=== PATIENT | female | born 1965 | race Caucasian/White ===

== ENCOUNTER 2019-05-21 10:07 | Emergency (ER) | payer OTHER, SELFPAY ==
--- NOTE | ~2019-05-21 | XR_ITS ---
EXAMINATION: XR abdomen/kub 1V DATE: 05/21/2019 10:43 INDICATION: Left flank pain. TECHNIQUE: A supine view of the abdomen was obtained. COMPARISON: None. FINDINGS: There are no dilated loops of bowel. Calcifications in the pelvis are likely phleboliths. S mall distal ureteral stone cannot be excluded. IMPRESSION: 1. Calcifications in the pelvis, which are likely phleboliths. Small distal ureteral stone cannot be excluded. Reviewed, dictated and finalized at location A. PRODUCTION GENERAL MANAGER IMPRESSION: 1. Calcifications in the pelvis, which are likely phleboliths. Small distal ure teral stone cannot be excluded.
--- NOTE | 2019-05-21 10:17 | ED.GENADULT ---
HPI - General Adult General Chief complaint: Back Pain/Injury Stated complaint: lower back pain Time Seen by Provider: 05/21/19 10:29 Source: patient Mode of arrival: ambulatory Limitations: no limitations History of Present Illness HPI narrative: 54-year-old female patient presents to the [facility] with complaints of left flank pain that started abruptly at 1 AM yesterday morning. Patient states she has had some urgency and frequency but states that she does have that at times. Patient denies any pain with urination. Patient denies any fevers, or vomiting. Patient states she has had some nausea and diarrhea though. Patient denies any injury to the back that she is aware of. Patient denies any radiation of pain that wraps around the belly and denies any radiation pain down the leg. Patient states she has been taking Tylenol ibuprofen and a heating pad to help with the pain. Related Data Allergies Allergy/AdvReac Type Severity Reaction Status Date / Time No Known Allergies Allergy Unverified 06/03/17 17:18 Review of Systems Review of Systems: Narrative: CONSTITUTIONAL: Denies fever, chills, or sweats. EYES: Denies visual changes, redness, or discharge. ENT: Denies rhinorrhea, congestion, sore throat, or otalgia. CARDIOVASCULAR: Denies chest pain, palpitations, or edema. RESPIRATORY: Denies cough or dyspnea. GASTROINTESTINAL: Denies abdominal pain, nausea, vomiting, or diarrhea. GENITOURINARY: Denies dysuria or hematuria. Positive urgency and frequency. SKIN: Denies rash or itching. MUSCULOSKELETAL: Positive left flank/back pain, denies joint pain, or myalgia. NEUROLOGIC: Denies headache, numbness, or weakness. PSYCHIATRIC: Denies anxiety or depression. PMFSH Past Medical History Medical History (Updated 05/21/19 @ 11:28 by SARA Lara) Anxiety Bronchitis Pneumonia Psoriasis Surgical History Surgical History (Updated 05/21/19 @ 10:19 by SARA Lara) H/O tubal ligation Comments At the time of my signature I agree with nursing past medical history, surgical, social, and family history. There is no relevant family history pertinent to the presenting complaint. Exam Narrative: Exam Narrative: GENERAL: Well-appearing, well-nourished, and in no acute distress. HEAD: Normocephalic, atraumatic. EYES: PERRLA and EOMI. ENT: Nares clear, no rhinorrhea or epistaxis. Mucous membranes moist. NECK: Supple. No lymphadenopathy CHEST: Clear to auscultation. No respiratory distress. HEART: Regular rate and rhythm. No murmur heard. Normal peripheral pulses. ABDOMEN: Soft, flat, nondistended. No guarding, rebound tenderness, or rigid. No pulsatilla masses. Bowel sounds present in all four quadrants. No organomegaly. Negative Carson?s sign. No periumbicial tenderness. No Supra public tenderness or distension. Good femoral pulses bilaterally. No hernia noted. No scars or surface trauma. No CVA tenderness on percussion BACK: Patient is able to ambulated without assistance. Pt is seated/lying on the stretcher in no obvouis distress. No surface trauma noted. No muscle tenderness to Palpation. No spasm or mass. No step-offs or deformity noted to the cervical, thoracic or lumbar spine to firm Palpation at the midline. No CVA tenderness to percussion. No saddle anesthesia. ROM: able to stand erect. Normal flexion, extension, Lateral bending and rotation without limitation or complaint of pain. EXTREMITIES: Normal range of motion. No edema. SKIN: Warm, dry, no rash. NEURO: No focal deficits. Alert and oriented x3. Course Reevaluation(s) Reevaluation #1: Notify patient that her x-ray is suggestive of possibly a small kidney stone. Discussed with patient we are going to go ahead and treat her as a kidney stone today given her pain and her symptoms. Discussed with patient we will discharge her with home with some Flomax as well as some pain medication. Discussed with her she needs to increase her fluid. Discussed with patient
[2019-05-21 10:20] VITALS: BP 157/95; PULSE 76; RESP 18; TEMP 36.9; O2SAT 99
== END 2019-05-21 11:37 | disposition home or self-care (01) ==
PROVIDERS: Emergency Provider Nurse Practitioner Family
DX: N20.0 Calculus of kidney (principal)
CPT/HCPCS: 74018; 81003; 87086; 99213; G0463

== ENCOUNTER → 2019-05-25 14:18 | Outpatient (CLI) | payer OTHER, SELFPAY ==
--- NOTE | ~2019-05-25 | CT_ITS ---
EXAMINATION: CT abdomen pelvis wo con EXAM DATE: 05/25/2019 14:32 INDICATION: Left flank pain, nausea. TECHNIQUE: Spiral CT of the abdomen and pelvis was performed without contrast. Axial, coronal and sag ittal images were reviewed. The dose-length product (DLP) for this examination was 261.66 mGy-cm. T he exposure was tailored according to patient size (auto mA exposure control), and iterative reconstr uction (ASIR) was used as additional dose reduction technique. There is no prior study for compariso n. FINDINGS: There is no nephrolithiasis or hydronephrosis. The uterus is unremarkable. The bladder is collapsed at time of imaging limiting evaluation. The liver, spleen, adrenal glands and pancreas are unremarkable. Gallbladder is unremarkable. No biliary obstruction. There is no retroperitoneal or pelvic lymphadenopathy. The appendix is normal. The stomach and small bowel are unremarkable. There is expected amount of c olonic stool. There is mild sigmoid colonic diverticulosis. There is no adjacent inflammatory change to suggest diverticulitis. The heart is normal in size. There are no pericardial or pleural effusio ns. The lung bases are unremarkable. There are no osteoblastic or osteolytic lesions identified. IMPRESSION: 1. No nephrolithiasis, hydronephrosis or acute intra-abdominal findings. 2. Mild sigmoid diverticulosis. Reviewed, dictated and finalized at location A. STIGATION MANAGER
== END ==
DX: R10.9 Unspecified abdominal pain (principal); K57.30 Diverticulosis of large intestine without perforation or abscess without bleeding
CPT/HCPCS: 74176

== ENCOUNTER 2019-09-14 13:59 | Emergency (ER) | payer OTHER, SELFPAY ==
--- NOTE | 2019-09-14 14:10 | PC.NURSE ---
1411- Pt went to restroom
[2019-09-14 14:11] VITALS: BP 114/84; PULSE 88; RESP 18; TEMP 36.6; O2SAT 96
== END 2019-09-14 14:18 | disposition left against medical advice (07) ==
LOC: EXPCOLL 14:04
PROVIDERS: Emergency Provider Nurse Practitioner
DX: Z53.21 Procedure and treatment not carried out due to patient leaving prior to being seen by health care provider (principal)
CPT/HCPCS: 99199

== ENCOUNTER 2019-12-16 14:25 | Emergency (ER) | payer OTHER, SELFPAY ==
--- NOTE | ~2019-12-16 | XR_ITS ---
EXAMINATION: XR ankle LT min 3V EXAM DATE: 12/16/2019 15:00 INDICATION: Initial encounter following injury, with pain of the left ankle. TECHNIQUE: Left ankle frontal, lateral and oblique projections obtained and reviewed. There is no pr ior study for comparison. FINDINGS: The left ankle mortise appears intact. There are no acute fractures or dislocations ident ified. There is no subcutaneous gas. The soft tissue is unremarkable. There are no radiopaque for eign bodies. IMPRESSION: 1. XR ankle LT min 3V exam without acute osseous findings. Reviewed, dictated and finalized at location A.
[2019-12-16 14:44] VITALS: BP 128/86; PULSE 78; RESP 16; TEMP 36.8; O2SAT 99
--- NOTE | 2019-12-16 14:50 | ED.GENADULT ---
HPI - General Adult General Chief complaint: Extremity Injury, Lower Stated complaint: Left Ankle Pain Time Seen by Provider: 12/16/19 14:45 Source: patient and RN notes reviewed Mode of arrival: ambulatory Limitations: no limitations History of Present Illness HPI narrative: 54-year-old female presents with complains of tenderness to left ankle for 1 day. Chey says she jumped into a [place] on 12/15/19 and landed on a large rock bending LT foot upward causing pain to left ankle. Ibuprofen last night with some relief. No radiating pain. No numbness or tingling or loss of mobility. Denies inability to bear weight. Exacerbation factor consist of movement. The relieving factor is immobility. Denies discoloration. Denies altered sensation, back pain, neck pain, and suspected foreign body. The patient reports she have not been diagnosed with COVID-19. The patient reports she is not waiting for the results of a COVID-19 lab test. The patient reports she do not have fever, chills, weakness, or fatigue. The patient reports she do not have a new or worsening cough or shortness of breath. Denies chest pain. The patient reports she do not have any rhinorrhea, congestion, sore throat, loss of taste, nausea, vomiting, abdominal pain, and diarrhea. Tolerating po intake well. Denies recent traveling. Denies concerns for COVID-19 or exposures been home with limited outdoor exposure except for essential household needs, work, and return home. At this time, patient is not suspected of having COVID-19. Some parts of this dictation were generated by voice recognition software and may contain typographical and/or grammatical inaccuracies. Related Data Home Medications Medication Instructions Recorded Confirmed No Home Medications 09/14/19 09/14/19 Allergies Allergy/AdvReac Type Severity Reaction Status Date / Time codeine Allergy Mild SLURRED Unverified 10/12/19 09:10 SPEECH HORSE RADISH Allergy Mild HIVES AND Uncoded 10/12/19 09:10 ABDOMINAL PAIN Review of Systems Review of Systems: Narrative: CONSTITUTIONAL: Denies fever, chills, sweats. EYES: Denies visual changes, redness, discharge. ENT: Denies rhinorrhea, congestion, sore throat, otalgia. CARDIOVASCULAR: Denies chest pain, palpitations, edema. RESPIRATORY: Denies dyspnea, wheezing, cough. GASTROINTESTINAL: Denies abdominal pain, nausea, vomiting, diarrhea. GENITOURINARY: Denies dysuria, hematuria, abnormal discharge. SKIN: Denies rash or itching. MUSCULOSKELETAL: Denies acute back pain or myalgia. Complains of LT ankle pain. NEUROLOGIC: Denies numbness or focal weakness. PSYCHIATRIC: Denies anxiety or depression. All other systems reviewed & are unremarkable except as noted in HPI and below. [facility] Past Medical History Medical History (Updated 12/17/19 @ 00:00 by Reji Cline) Anxiety Bronchitis Diverticulosis Kidney stones Melanoma Menopausal symptoms Pneumonia Psoriasis Vaginal delivery x 2 Surgical History Surgical History H/O tubal ligation [place] teeth removed Family History Family History (Updated 12/16/19 @ 15:04 by SARA Pitt) Grandparent Diabetes mellitus Father Alive and well Mother Alive and well Other Breast cancer Social History Social History Smoking status: Former smoker Smoking end date: 01/13/19 Alcohol intake: current Drinks per week: 12 Substance use: former Substance use type: marijuana Gender identity (if verbalized by the patient): Female Comments At time of signature, agree with nurse past medical, surgical, social, and family history. There is no relevant family history pertinent to the presenting complaint. Exam Narrative: Exam Narrative: GENERAL: This is a well-nourished, well-developed patient, in no apparent distress. Talks in full sentence
== END 2019-12-16 15:35 | disposition home or self-care (01) ==
PROVIDERS: Emergency Provider Nurse Practitioner Family
DX: S93.402A Sprain of unspecified ligament of left ankle, initial encounter (principal); X58.XXXA Exposure to other specified factors, initial encounter
CPT/HCPCS: 73610; 99213; G0463

== ENCOUNTER 2020-03-28 14:56 | Outpatient (CLI) | payer OTHER, SELFPAY ==
--- NOTE | ~2020-03-28 | MM_ITS ---
EXAMINATION: MM screening pipo BI w christie HISTORY: Screening TECHNIQUE: Craniocaudal and mediolateral oblique 3-D tomosynthesis images were obtained and synthetic 2-D images were generated. CAD analysis was submitted and interpreted. COMPARISON: No prior mammogram is available for comparison at this institution. BREAST PARENCHYMAL COMPOSITION: There are scattered areas of fibroglandular density. FINDINGS: There are multiple bilateral breast masses. There are no suspicious calcifications. IMPRESSION: 1. Multiple bilateral breast masses. 2. Additional mammographic views and possible breast ultrasound are recommended. BI-RADS Category 0: Incomplete: Needs additional imaging evaluation. Reviewed, dictated and finalized at location A. SPORTATION PROJECT MANAGER IMPRESSION: 1. Multiple bilateral breast masses. 2. Additional mammographic views and possible breast ultrasound are recommended . BI-RADS Category 0: Incomplete: Needs additional imaging evaluation.
== END 2020-03-28 14:57 | disposition home or self-care (01) ==
LOC: ANHIMG 14:58
PROVIDERS: PCP Student in an Organized Health Care Education/Training Program; Visit Provider Student in an Organized Health Care Education/Training Program
DX: Z12.31 Encounter for screening mammogram for malignant neoplasm of breast (principal); R92.8 Other abnormal and inconclusive findings on diagnostic imaging of breast
CPT/HCPCS: 77063; 77067

== ENCOUNTER 2020-06-25 15:03 | Outpatient (CLI) | payer OTHER, SELFPAY | END 2020-06-25 15:04 | disposition home or self-care (01) | LOC: ANHCOVIDVC 15:03 | PROVIDERS: PCP Student in an Organized Health Care Education/Training Program | DX: Z23 Encounter for immunization (principal) | CPT/HCPCS: 0001A; 91300 ==

== ENCOUNTER 2020-07-16 15:03 | Outpatient (CLI) | payer OTHER, SELFPAY | END 2020-07-16 15:04 | disposition home or self-care (01) | LOC: ANHCOVIDVC 15:04 | PROVIDERS: PCP Student in an Organized Health Care Education/Training Program | DX: Z23 Encounter for immunization (principal) | CPT/HCPCS: 0002A; 91300 ==

== ENCOUNTER 2020-08-06 13:04 | Outpatient (CLI) | payer OTHER, SELFPAY ==
--- NOTE | ~2020-08-06 | MMUS_ITS ---
EXAMINATION: MM diagnostic pipo BI w christie, US breast RT limited, US breast LT limited HISTORY: Bilateral breast masses TECHNIQUE: Additional 3-D tomosynthesis images of the breasts were performed and synthetic 2-D images were generated. CAD analysis was submitted and interpreted. High resolution limited bilateral breast ultrasound was performed. COMPARISON: 03/28/2020 BREAST PARENCHYMAL COMPOSITION: There are scattered areas of fibroglandular density. FINDINGS: MAMMOGRAPHIC FINDINGS: Right breast: There is a 10 mm oval, obscured, equal density mass in the anterior third of the outer breast at the 9:00 location 3 cm from the nipple. A 10 mm mass with similar mammographic features is present in the middle third of the outer breast at the 8:00 location 7 cm from the nipple. There is a 6 mm mass in the posterior third of the lower-outer breast at the 9:00 location 9 cm from the nipple . Left breast: There is a 4 mm circumscribed, oval, equal density mass in the posterior third of the ou ter breast at the 3:00 location 9 cm from the nipple. ULTRASOUND: Right breast: There is a 10 mm x 5 mm oval, hypoechoic, irregular mass with subtle posterior acoustic shadowing and no internal vascularity at the 8:00 location 4 cm from the nipple. There is a 9 mm x 7 mm oval, circumscribed, parallel, hypoechoic mass at the 10:00 location near the nipple. There is a 6 mm x 5 mm oval, parallel, hypoechoic mass with angular margins, no posterior features, and no inter nal vascularity at the 10:00 location 6 cm from the nipple. Left breast: There is a 4 mm x 3 mm oval, circumscribed, parallel, hypoechoic mass with no posterior features or internal vascularity at the 1:00 location 8 cm from the nipple. IMPRESSION: 1. Three masses of the outer right breast as described above for which ultrasound-guided biopsy is re commended. 2. Probably benign left breast mass. Follow-up left diagnostic mammogram and ultrasound in six months are recommended. BI-RADS category 4, suspicious findings. Reviewed, dictated and finalized at location A. IMPRESSION: 1. Three masses of the outer right breast as described above for which ultrasou nd-guided biopsy is recommended. 2. Probably benign left breast mass. Follow-up left diagnostic mammogram and ul trasound in six months are recommended. BI-RADS category 4, suspicious findings. IMPRESSION: 1. Three masses of the outer right breast as described above for which ultrasou nd-guided biopsy is recommended. 2. Probably benign left breast mass. Follow-up left diagnostic mammogram and ul trasound in six months are recommended. BI-RADS category 4, suspicious findings.
== END 2020-08-06 13:05 | disposition home or self-care (01) ==
PROVIDERS: PCP Student in an Organized Health Care Education/Training Program; Visit Provider Student in an Organized Health Care Education/Training Program
DX: R92.8 Other abnormal and inconclusive findings on diagnostic imaging of breast (principal)
CPT/HCPCS: 76642; 77062; 77066; G0279

== ENCOUNTER 2021-02-28 13:07 | Outpatient (CLI) | payer OTHER, SELFPAY ==
--- NOTE | ~2021-02-28 | MMUS_ITS ---
EXAMINATION: MM diagnostic pipo BI w christie, US breast LT limited HISTORY: Bilateral breast masses TECHNIQUE: ML, MLO and craniocaudal 3-D tomosynthesis images of both breasts were performed and [facility]. CAD analysis was submitted and interpreted. High resolution limited l eft breast ultrasound was performed. COMPARISON: 08/06/2020 bilateral diagnostic mammogram and bilateral Limited bilateral breast ultrasoun d 03/28/2020 bilateral screening mammogram BREAST PARENCHYMAL COMPOSITION: There are scattered areas of fibroglandular density. FINDINGS: MAMMOGRAPHIC FINDINGS: Bilateral subcentimeter circumscribed low-density opacities are again noted, larger on the right, but stable bilaterally since 03/28/2020. No significant new or developing density is evident. No malignan t calcification, skin thickening or retraction. There are several biopsy markers on the right; history of 3 benign right breast biopsies. ULTRASOUND: 1:00 8 cm from nipple: Parallel circumscribed 3.9 x 2.8 x 3.6 mm hypoechoic area without suspicious s hadowing. This appears stable or slightly diminished in size compared to.. IMPRESSION: 1. Benign findings; no mammographic evidence of malignancy 2. Routine annual mammographic screening is recommended. BI-RADS Category 2: Benign finding(s). Reviewed, dictated and finalized at location A. TOLOGIC TECHNICIAN IMPRESSION: 1. Benign findings; no mammographic evidence of malignancy 2. Routine annual mammographic screening is recommended. BI-RADS Category 2: Benign finding(s).
== END 2021-02-28 13:08 | disposition home or self-care (01) ==
LOC: ANHIMG 13:10
PROVIDERS: PCP Student in an Organized Health Care Education/Training Program; Visit Provider Student in an Organized Health Care Education/Training Program
DX: R92.8 Other abnormal and inconclusive findings on diagnostic imaging of breast (principal)
CPT/HCPCS: 76642; 77062; 77066; G0279

== ENCOUNTER 2021-08-27 14:27 | Outpatient (CLI) | payer OTHER, SELFPAY ==
--- NOTE | ~2021-08-27 | MM_ITS ---
EXAMINATION: MM screening [facility] BI w christie HISTORY: Screening TECHNIQUE: Craniocaudal and mediolateral oblique 3-D tomosynthesis images were obtained and synthetic 2-D images were generated. CAD analysis was submitted and interpreted. COMPARISON: Comparison to multiple prior studies sequentially, with oldest reviewed study dated 12/2019. BREAST PARENCHYMAL COMPOSITION: There are scattered areas of fibroglandular density. FINDINGS: Bilateral breast masses are stable. Several tissue markers are present in the right breast, consistent with previous benign biopsies. There is no evidence of suspicious mass, calcification, or architectural distortion to suggest malignancy in either breast. There has been no suspicious interv al change. IMPRESSION: 1. No mammographic evidence of malignancy. 2. Recommend routine screening mammography in one year. BI-RADS Category 2: Benign finding(s). Reviewed, dictated and finalized at location A.
== END 2021-08-27 14:28 | disposition home or self-care (01) ==
LOC: ANHIMG 14:28
PROVIDERS: PCP Student in an Organized Health Care Education/Training Program; Visit Provider Student in an Organized Health Care Education/Training Program
DX: Z12.31 Encounter for screening mammogram for malignant neoplasm of breast (principal)
CPT/HCPCS: 77063; 77067

== ENCOUNTER 2021-09-10 01:14 | Day surgery (SDC) | payer OTHER, SELFPAY ==
[2021-08-28 13:52] VITALS: BMI 21.5
[2021-09-10 10:03] VITALS: BP 141/90; PULSE 82; RESP 16; TEMP 36.3; O2SAT 97; BMI 20.4
[2021-09-10] MEDS: LACTATED RINGERS 1,000 ML 150 ML IV CONT (10:15)
--- NOTE | 2021-09-10 10:43 | WPDANESEPPF ---
Anes - Initial Pre Proc Eval Procedure: Operation Date: 09/10/21 11:00 Proposed Procedures p Screening Colonoscopy - Jacky Becker MD Date/Time: 09/10/21 10:43 Surgeon: Jacky Becker MD Pre Op Diagnosis: neoplasm screening Patient Data Age: 56 Gender: F Height: 1.63 m Weight: 54 kg Last Vital Signs Temp 97.4 F L 09/10/21 10:03 Pulse 82 09/10/21 10:03 Resp 16 09/10/21 10:03 BP 141/90 H 09/10/21 10:03 Pulse Ox 97 09/10/21 10:03 O2 Del Method Room Air 09/10/21 10:03 Allergies Allergy/AdvReac Type Severity Reaction Status Date / Time codeine Allergy Mild SLURRED Verified 09/10/21 10:02 SPEECH HORSE RADISH Allergy Mild HIVES AND Uncoded 09/10/21 10:02 ABDOMINAL PAIN Home Medications Medication Instructions Recorded Confirmed Type No Home Medications 09/14/19 09/10/21 History Patient hx anesthesia problems: none Family hx anesthesia problems: none Results Review: All pre-operative results and documents have been reviewed as part of the pre-operative evaluation. [facility] Past Medical History Medical History (Updated 07/23/21 @ 09:52 by Yessenia Sanderson MA) Anxiety Bronchitis Diverticulosis Fibroadenoma of breast History of miscarriage Kidney stones Melanoma Menopausal symptoms Pneumonia Psoriasis Vaginal delivery x 2 Surgical History Surgical History H/O tubal ligation History of melanoma excision 09/2019 [place] teeth removed Family History Family History Grandparent Diabetes mellitus Father Alive and well Mother Alive and well Other Breast cancer Social History Social History Years smoked: 40 Smoking status: Former smoker Tobacco type: cigarettes Smoking end date: 01/13/19 Additional smoking assessment comments: smoked on and off for 40 years Alcohol intake: current Drinks per week: 12 Substance use: current Substance use type: marijuana Last use: 08/27/21 Living arrangements: with family Gender identity (if verbalized by the patient): Female Spiritual care concerns: No Anes - Eval Final PreProcedure Day of Procedure 09/10/21 10:43 Patient weight: normal Heart: regular rate and rhythm Lungs: clear to auscultation Neurological: alert and oriented Last oral intake: >/= 8 hours ASA classification: II Emergent: no Anesthetic plan: proceed Anesthesia type and monitoring: general GIVS and standard monitoring Results Review: All pre-operative results and documents have been reviewed as part of the pre-operative evaluation. Informed Consent: The patient's anesthetic plan and its attendant risks and benefits were discussed with the patient/family/POA. Questions were solicited and answers provided to the satisfaction of the patient/family/POA.
--- NOTE | 2021-09-10 10:49 | PM.HPGS ---
History of Present Illness History of Present Illness Consent: Risks, benefits, and alternatives have been discussed and questions answered. Patient agrees to proceed with procedure. Chief complaint: neoplasm screening Narrative: Chey Booker is a 56 year old female here for first screening colonoscopy Review of Systems Review of Systems: CONSTITUTIONAL: Denies fever, chills, sweats. EYES: Denies visual changes, redness, discharge. ENT: Denies rhinorrhea, congestion, sore throat, otalgia. CARDIOVASCULAR: Denies chest pain, palpitations, edema. RESPIRATORY: Denies dyspnea, wheezing, cough. GASTROINTESTINAL: Denies abdominal pain, nausea, vomiting, diarrhea. GENITOURINARY: Denies dysuria, hematuria, abnormal discharge. SKIN: Denies rash or itching. MUSCULOSKELETAL: Denies acute back pain or myalgia. Complains of LT ankle pain. NEUROLOGIC: Denies numbness or focal weakness. PSYCHIATRIC: Denies anxiety or depression. All other systems reviewed & are unremarkable except as noted in HPI and below. [facility] Past Medical History Medical History (Updated 09/10/21 @ 10:49 by Jacky Becker MD) Anxiety Bronchitis Colon cancer screening Diverticulosis Fibroadenoma of breast History of miscarriage Kidney stones Melanoma Menopausal symptoms Pneumonia Psoriasis Vaginal delivery x 2 Surgical History Surgical History H/O tubal ligation History of melanoma excision 09/2019 [place] teeth removed Family History Family History Grandparent Diabetes mellitus Father Alive and well Mother Alive and well Other Breast cancer Social History Social History Years smoked: 40 Smoking status: Former smoker Tobacco type: cigarettes Smoking end date: 01/13/19 Additional smoking assessment comments: smoked on and off for 40 years Alcohol intake: current Drinks per week: 12 Substance use: current Substance use type: marijuana Last use: 08/27/21 Living arrangements: with family Gender identity (if verbalized by the patient): Female Spiritual care concerns: No Meds Home Medications and Allergies Home Medications Medication Instructions Recorded Confirmed Type No Home Medications 09/14/19 09/10/21 History Allergies Allergy/AdvReac Type Severity Reaction Status Date / Time codeine Allergy Mild SLURRED Verified 09/10/21 10:02 SPEECH HORSE RADISH Allergy Mild HIVES AND Uncoded 09/10/21 10:02 ABDOMINAL PAIN Vital Signs Vital Signs - 24 hr 09/10/21 10:03 Temperature 97.4 F L Pulse Rate 82 Respiratory Rate 16 Blood Pressure 141/90 H Pulse Oximetry 97 Oxygen Delivery Room Air Exam Const: General: comfortable and no acute distress HENMT: General nose exam: Normal nares present Eyes: General: appearance normal, both eyes and all related structures Neck: Neck: no JVD Resp: Auscultation: clear to auscultation bilaterally Cardio: Rate: regular rate Rhythm: regular rhythm GI: Inspection: non-distended GI Palp: Yes Soft to palpation Skin: General skin exam: normal color Neuro: General: gait normal Speech: normal speech Extrem: General: normal to inspection Psych: Mental Status: mental status grossly normal Assessment and Plan Assessment and plan (1) Colon cancer screening: Code(s): Z12.11 - Encounter for screening for malignant neoplasm of colon Status: Acute Assessment and Plan: colonoscopy
[2021-09-10 11:17] VITALS: BP 113/70; PULSE 85; RESP 30; O2SAT 100
[2021-09-10 11:27] VITALS: BP 106/69; PULSE 61; RESP 18; O2SAT 100
[2021-09-10 11:37] VITALS: BP 125/73; PULSE 66; RESP 18; O2SAT 100
== END 2021-09-10 11:48 | disposition home or self-care (01) ==
PROVIDERS: Referring Provider Student in an Organized Health Care Education/Training Program; Visit Provider Internal Medicine Gastroenterology
PROC: 0DJD8ZZ Inspection of Lower Intestinal Tract, Via Natural or Artificial Opening Endoscopic (ICD-10-PCS; CPT 45378; principal; 2021-09-10 11:00)
DX: Z12.11 Encounter for screening for malignant neoplasm of colon (principal); K57.30 Diverticulosis of large intestine without perforation or abscess without bleeding; K64.8 Other hemorrhoids; D12.3 Benign neoplasm of transverse colon; F41.9 Anxiety disorder, unspecified; Z85.820 Personal history of malignant melanoma of skin; L40.9 Psoriasis, unspecified; Z87.891 Personal history of nicotine dependence; F12.90 Cannabis use, unspecified, uncomplicated
CPT/HCPCS: 45385; 88305; J2704; J7120

== ENCOUNTER 2021-10-24 08:14 | Outpatient (CLI) | payer OTHER, SELFPAY ==
--- NOTE | ~2021-10-24 | DEXA_ITS ---
Bone Density Report Name: JEFFREY HAHN Age: 56 Sex: Female Ethnicity: White Date of : 1965 Indication: postmenopausal; screening for osteoporosis; height loss; cancer; Referring Provider: AMITA ROSALES Study: Bone densitometry was performed. Exam Date: October 24, 2021 Accession number: [id number] Bone Density: Region BMD T-score Z-score Classification AP Spine(L1-L4) 1.034 -0.1 1.1 Normal Femoral Neck (Left) 0.733 -1.0 0.1 Normal Total Hip (Left) 0.866 -0.6 0.1 Normal Femoral Neck (Right) 0.759 -0.8 0.3 Normal Total Hip (Right) 0.847 -0.8 0.0 Normal Total Hip Mean 0.856 -0.7 0.1 Normal World Health Organization criteria for BMD impression classify patients as: Normal (T-score at or above -1.0), Osteopenia (T-score between -1.0 and -2.5), or Osteoporosis (T-score at or below -2.5). 10-year Fracture Risk: FRAX not reported because: All T-scores for Spine Total, Hip Total, Femoral Neck at or above -1.0 Clinical Information Provided by Patient: Has used the following medications: Vitamin D, Calcium Has the following medical conditions: Cancer Patient maximum height was 65 Menopause Age: 46 No regular weight bearing exercise Drinks caffeinated beverages Onset of menses at age 13 Number of children 2 Impression: The patient has normal bone mass. Discussion: BONE DENSITY IS ABOVE THE MINIMUM DESIRABLE LEVEL AT ALL SKELETAL SITES TESTED. This patient?s bone mineral density is above the minimum desirable level (T-score -1.0 or better) at all sites measured. The patient should follow a healthful lifestyle (good nutrition with adequate calcium and vitamin D, and appropriate weight-bearing exercise). Follow-Up: Consider repeating this study in 5 years or sooner if there is some new clinical indication. Reported by: SOCORRO on 10/24/2021 8:30:00 AM. Reviewed, dictated and finalized at location ALima COSTA
== END 2021-10-24 08:15 | disposition home or self-care (01) ==
LOC: ANHIMG 08:15
PROVIDERS: Visit Provider Student in an Organized Health Care Education/Training Program
DX: Z13.820 Encounter for screening for osteoporosis (principal); Z78.0 Asymptomatic menopausal state
CPT/HCPCS: 77080

== ENCOUNTER 2022-01-11 10:52 | Emergency (ER) | payer OTHER, SELFPAY ==
--- NOTE | ~2022-01-11 | XR_ITS ---
EXAMINATION: XR chest 2V 01/11/2022 11:09 INDICATION: Cough and congestion. Chest pain. PROCEDURE: 2 view chest COMPARISON: 06/03/2017 FINDINGS: The lungs are clear. The lungs are hyperinflated which is consistent with, but not diagnost ic of chronic obstructive pulmonary disease. The cardiomediastinal silhouette is within normal limits . There are no pleural effusions. There is no pneumothorax suspected. IMPRESSION: 1: NO ACUTE CARDIOPULMONARY DISEASE. Reviewed, dictated and finalized at location A.
[2022-01-11 11:02] VITALS: BP 125/86; PULSE 77; RESP 18; TEMP 37.2; O2SAT 99
--- NOTE | 2022-01-11 11:30 | ED.CHESTPAIN ---
HPI - Chest Pain General Chief Complaint: Chest Pain Stated Complaint: Chest Pain Time Seen by Provider: 01/11/22 11:05 Source: patient Mode of arrival: ambulatory Limitations: no limitations History of Present Illness HPI narrative: Mrs Booker is a 56-year-old female patient presented to the clinic today with complaints of left-sided chest discomfort, productive cough with brown phlegm, and mild shortness of breath x 3 weeks. She is a former smoker. She reports that the pain is worse when her anxiety is increased. No history of COPD or asthma. States pain is slightly worse with inspiration to the left chest wall-the area is also tender to palpation over the left chest wall. She denies any fevers or chills. States she uses an albuterol inhaler and she has been wheezing a lot here recently. Related Data Allergies Allergy/AdvReac Type Severity Reaction Status Date / Time codeine Allergy Mild SLURRED Verified 01/11/22 11:00 SPEECH HORSE RADISH Allergy Mild HIVES AND Uncoded 01/11/22 11:00 ABDOMINAL PAIN Review of Systems Review of Systems: Pertinent positives per HPI. Patient denies any fever, chills, rash, headache, visual changes, dizziness, cough, runny nose, sore throat, shortness of breath, chest pain, palpitations, nausea, vomiting, diarrhea, constipation, abdominal pain, or any urinary issues. [facility] Past Medical History Medical History Anxiety Bronchitis Colon cancer screening Diverticulosis Fibroadenoma of breast History of miscarriage Kidney stones Melanoma Menopausal symptoms Pneumonia Psoriasis Vaginal delivery x 2 Surgical History Surgical History H/O tubal ligation History of melanoma excision 09/2019 [place] teeth removed Family History Family History Grandparent Diabetes mellitus Father Alive and well Mother Alive and well Other Breast cancer Social History Social History Years smoked: 40 Smoking status: Former smoker Tobacco type: cigarettes Smoking end date: 01/13/19 Additional smoking assessment comments: smoked on and off for 40 years Alcohol intake: current Drinks per week: 12 Substance use: current Substance use type: marijuana Last use: 08/27/21 Gender identity (if verbalized by the patient): Female Spiritual care concerns: No Comments At the time of my signature, I reviewed and agree with the nursing past medical, surgical, social, and family history. There is no relevant family history pertinent to the patient complaint. Exam Narrative: General: Well-developed, well nourished, in no apparent distress Head: Normocephalic, atraumatic. Chest: Even rise and fall of the chest wall with respirations, no bruising or swelling noted, tenderness to palpation over the left anterior chest wall. Cardio: Regular rate and rhythm, s1 and s2 normal, no murmur appreciated. Resp: Diminished breath sounds throughout, no rhonchi, rales, wheezing or rubs. Extremities: No deformity, no edema, no cyanosis, capillary refill less than 2 seconds, peripheral pulses palpable and strong. Integumentary: [place], warm, and dry, intact without lesion, no rashes. Course Course Emergency Course: Portions of this record may have been created with voice recognition software. Level of Care: Express Care Visit Vital Signs Vital signs: Vital Signs Temperature 37.2 C 01/11/22 11:02 Pulse Rate 77 01/11/22 11:02 Respiratory Rate 18 01/11/22 11:02 Blood Pressure 125/86 01/11/22 11:02 Pulse Oximetry 99 01/11/22 11:02 Oxygen Delivery Room Air 01/11/22 11:02 Temperature 37.2 C 01/11/22 11:02 Pulse Rate 77 01/11/22 11:02 Respiratory Rate 18 01/11/22 11:02 Blood Pressure 125/86 01/11
--- NOTE | 2022-01-11 11:31 | ECG_ITS ---
Measurements Intervals [place] Rate: 71 P: 73 ND: 170 QRS: 78 QRSD: 91 T: 70 QT: 390 QTc: 425 Interpretive Statements SINUS RHYTHM NORMAL ECG NO PREVIOUS ECG AVAILABLE FOR COMPARISON Electronically Signed On 01-11-2022 18:19:43 CDT by Ayden Dias D.O.
== END 2022-01-11 11:36 | disposition home or self-care (01) ==
PROVIDERS: Emergency Provider Nurse Practitioner Family
DX: J40 Bronchitis, not specified as acute or chronic (principal); Z85.820 Personal history of malignant melanoma of skin; Z87.891 Personal history of nicotine dependence
CPT/HCPCS: 71046; 93005; 99213; G0463

== ENCOUNTER 2022-05-31 09:41 | Emergency (ER) | payer OTHER, SELFPAY ==
[2022-05-31 10:03] VITALS: BP 110/85; PULSE 81; RESP 16; TEMP 36.6; O2SAT 99
--- NOTE | 2022-05-31 10:06 | ED.URI ---
HPI - URI/Sore Throat General Chief Complaint: Upper Respiratory Infection Stated Complaint: Sore Rt Nostril Time Seen by Provider: 05/31/22 10:06 Source: patient Mode of arrival: ambulatory Limitations: no limitations History of Present Illness HPI Narrative: 57 yo F presents with c/o nasal congestion, sinus with drainage and cough for 1 month. Taking OTC meds with no relief. Also reports sore to R nare that is not healing. States pain better past two days but unsure if she has pimple or psoraisis to nare. Afebrile. Denies SOB/CP. all systems reviewed and negative except as noted above. Related Data Allergies Allergy/AdvReac Type Severity Reaction Status Date / Time codeine AdvReac Intermediate SLURRED Verified 05/31/22 09:43 SPEECH HORSE RADISH AdvReac Intermediate HIVES AND Uncoded 05/31/22 09:43 ABDOMINAL PAIN Review of Systems Review of Systems: CONSTITUTIONAL: Denies fever, chills, or sweats. EYES: Denies visual changes, redness, or discharge. ENT: Reports rhinorrhea, congestion, sore throat. Denies otalgia. CARDIOVASCULAR: Denies chest pain, palpitations, or edema. RESPIRATORY: reports cough. Denies dyspnea. GASTROINTESTINAL: Denies abdominal pain, nausea, vomiting, or diarrhea. GENITOURINARY: Denies dysuria or hematuria. SKIN: Denies rash or itching. MUSCULOSKELETAL: Denies back pain, joint pain, or myalgia. NEUROLOGIC: Denies headache, numbness, or weakness. PSYCHIATRIC: Denies anxiety or depression. All other systems reviewed are negative, except as documented in HPI. [facility] Past Medical History Medical History Anxiety Bronchitis Colon cancer screening Diverticulosis Fibroadenoma of breast History of miscarriage Kidney stones Melanoma Menopausal symptoms Pneumonia Psoriasis Vaginal delivery x 2 Surgical History Surgical History H/O tubal ligation History of melanoma excision 09/2019 [place] teeth removed Family History Family History Grandparent Diabetes mellitus Father Alive and well Mother Alive and well Other Breast cancer Social History Social History Years smoked: 40 Smoking status: Former smoker Tobacco type: cigarettes Smoking end date: 01/13/19 Additional smoking assessment comments: smoked on and off for 40 years Alcohol intake: current Drinks per week: 12 Substance use: current Substance use type: marijuana Last use: 08/27/21 Living arrangements: with family Gender identity (if verbalized by the patient): Female Spiritual care concerns: No Comments At time of signature, agree with nursing past medical, surgical, social and family history. There is no relevant family history pertinent to the presenting complaint. Exam Narrative: GENERAL: This is a well-nourished, well-developed patient, in no apparent distress. HEAD: normocephalic, atraumatic. EYES: PERRL. Sclera clear/white. Vision is grossly intact. EARS: External ears normal, auditory canals clear and without drainage, TMs normal without perforation. Hearing grossly intact. NOSE: External nose normal with erythema and swelling to both nares. Moderate congestion. Bilateral maxillary sinus tenderness. No open sore noted to right nare To explain patient's pain. THROAT: Mucous membranes moist, Mild erythema postnasal drainage. NECK: Neck supple, non-tender without lymphadenopathy, masses or thyromegaly. CARDIOVASCULAR: Regular rate and rhythm without murmurs, gallops, or rubs. RESPIRATORY: Decreased lung Sounds bilaterally to lower lung mccann.. No wheezes, rales, or rhonchi. SKIN: warm, Dry, intact with no suspicious lesions or rash, good texture and turgor. NEURO: awake, alert, and oriented to person, place and time. The
== END 2022-05-31 10:20 | disposition home or self-care (01) ==
PROVIDERS: Emergency Provider Nurse Practitioner Family
DX: J01.90 Acute sinusitis, unspecified (principal); J34.89 Other specified disorders of nose and nasal sinuses; Z87.891 Personal history of nicotine dependence; L40.9 Psoriasis, unspecified; Z85.820 Personal history of malignant melanoma of skin
CPT/HCPCS: 99213; G0463

== ENCOUNTER → 2022-09-08 14:46 | Outpatient (CLI) | payer OTHER, SELFPAY ==
--- NOTE | ~2022-09-08 | XR_ITS ---
XR knee RT min 4V 09/08/2022 14:58 Indication: Right knee pain after twisting injury Procedure: 4 views right knee Comparison: No prior studies for comparison. Findings: There is moderate tricompartment osteoarthritis. No acute fracture or traumatic malalignmen t. No significant joint effusion. No foreign bodies. Impression: 1: Moderate osteoarthritis of the right knee. Reviewed, dictated and finalized at location B. Impression: 1: Moderate osteoarthritis of the right knee.
== END ==
PROVIDERS: PCP Family Medicine; Visit Provider Family Medicine
DX: M17.11 Unilateral primary osteoarthritis, right knee (principal)
CPT/HCPCS: 73564

== ENCOUNTER → 2022-10-09 15:44 | Outpatient (CLI) | payer OTHER, SELFPAY ==
--- NOTE | ~2022-10-09 | XR_ITS ---
EXAMINATION: XR chest 2V 10/09/2022 15:59 INDICATION: Cough. COPD. Melanoma. PROCEDURE: 2 view chest COMPARISON: Comparison to multiple prior studies sequentially, with oldest reviewed study dated 06/03. FINDINGS: The lungs are clear. The cardiomediastinal silhouette is within normal limits. There are no pleural effusions. There is no pneumothorax suspected. The lungs are hyperinflated which is cons istent with, but not diagnostic of chronic obstructive pulmonary disease. IMPRESSION: 1: NO ACUTE CARDIOPULMONARY DISEASE. Reviewed, dictated and finalized at location L.
== END ==
PROVIDERS: PCP Family Medicine; Visit Provider Family Medicine
DX: R05.9 Cough, unspecified (principal); J44.9 Chronic obstructive pulmonary disease, unspecified
CPT/HCPCS: 71046

== ENCOUNTER 2022-11-11 08:19 | Outpatient (CLI) | payer OTHER, SELFPAY ==
--- NOTE | ~2022-11-11 | MM_ITS ---
EXAMINATION: MM screening pipo BI w christie HISTORY: Screening mammogram TECHNIQUE: Craniocaudal and mediolateral oblique 3-D tomosynthesis images were obtained and synthetic 2-D images were generated. CAD analysis was submitted and interpreted. COMPARISON: 08/27/2021 bilateral screening mammogram 02/28/2021 diagnostic bilateral mammogram and limited left breast ultrasound examination 03/28/2020 bilateral screening mammogram BREAST PARENCHYMAL COMPOSITION: There are scattered areas of fibroglandular density. FINDINGS: Multiple right breast biopsy marker; history of prior benign right breast biopsies. There i s no evidence of suspicious mass, calcification, or architectural distortion to suggest malignancy in either breast. There has been no suspicious interval change. IMPRESSION: 1. No mammographic evidence of malignancy. 2. Recommend routine screening mammography in one year. BI-RADS Category 2: Benign finding(s). Reviewed, dictated and finalized at location L.
== END 2022-11-11 08:20 | disposition home or self-care (01) ==
PROVIDERS: PCP Family Medicine; Visit Provider Family Medicine
DX: Z12.31 Encounter for screening mammogram for malignant neoplasm of breast (principal)
CPT/HCPCS: 77063; 77067

== ENCOUNTER 2022-12-12 14:19 | Emergency (ER) | payer OTHER, SELFPAY ==
--- NOTE | 2022-12-12 14:34 | ED.SKABFB ---
HPI - Skin/Abscess/Foreign Bdy General Chief complaint: Skin/Abscess/Foreign Body Stated complaint: Unknown Time Seen by Provider: 12/12/22 14:34 Source: patient, RN notes reviewed and old records reviewed Mode of arrival: ambulatory Limitations: no limitations History of Present Illness HPI narrative: 57-year-old female presents to the [facility] after being bit by an insect to her right cheek. States she noticed it this morning. Also complaining of ear pain, sore throat for X about a week. No treatment prior to arrival Related Data Allergies Allergy/AdvReac Type Severity Reaction Status Date / Time codeine AdvReac Intermediate SLURRED Verified 12/12/22 14:27 SPEECH HORSE RADISH AdvReac Intermediate HIVES AND Uncoded 12/12/22 14:27 ABDOMINAL PAIN Review of Systems Review of Systems: All systems reviewed & are unremarkable except as noted in HPI and below Constitutional: Constitutional: Reports no additional constitutional complaints Eyes: Eyes: Reports no additional eye complaints ENT: Reports as per HPI Cardiovascular: Cardiovascular: Reports no additional cardiovascular complaints, Denies chest pain and Denies dyspnea Respiratory: Respiratory: Reports no additional respiratory complaints, Denies chest congestion, Denies cough and Denies dyspnea Gastrointestinal: Gastrointestinal: Reports no additional gastrointestinal complaints, Denies abdominal pain, Denies nausea and Denies vomiting Musculoskeletal: Musculoskeletal: Reports no additional musculoskeletal complaints Integumentary/Breasts: Skin/Breast: Reports as per HPI Neurologic: Reports system reviewed and no additional complaints, except as documented Psychiatric: Psychiatric: Reports no additional psychiatric complaints Allergic/Immunologic: Allergic/Immunologic: Reports no additional allergic/immunologic complaints PMFSH Past Medical History Medical History Anxiety Bronchitis Colon cancer screening Diverticulosis Fibroadenoma of breast Right History of melanoma (~2019) History of miscarriage Kidney stones Menopausal symptoms Psoriasis Right thigh pain Vaginal delivery x 2 Vitamin D deficiency Surgical History Surgical History H/O tubal ligation (~2002) History of melanoma excision (~09/2019) 09/2019 [place] teeth removed (~1982) Family History Family History Grandparent Diabetes mellitus Father Alive and well Mother Alive and well Other Breast cancer Social History Social History Years smoked: 40 Smoking status: Former smoker Tobacco type: cigarettes Smoking end date: 01/18/21 Additional smoking assessment comments: smoked on and off for 40 years Alcohol intake: current Drinks per week: 12 Substance use: current Substance use type: marijuana Last use: 08/27/21 Lack of Transportation: No Lack of Food: Never True Current Housing: I Have Housing Concerned About Future Housing: No Difficulty Paying Gas/Electric Bills: No Difficulty Paying for Meds: No Currently Unemployed: No Education: Associate Degree Difficulty w/ Childcare or Family Care: No Living arrangements: with family Occupation/Education: occupation Gender identity (if verbalized by the patient): Female Sexual Orientation (if Verbalized by the Patient): Straight or Heterosexual Spiritual care concerns: No Agree to blood products: Yes Comments At the time of my signature, I reviewed and agree with the nursing past medical, surgical, social, and family history. There is no relevant family history pertinent to the patient complaint. Exam Const: General: cooperative, healthy appearing, comfortable, no acute distress, well developed, alert and well nourished Nutritional Appearance
[2022-12-12 14:35] VITALS: BP 115/85; PULSE 80; RESP 18; TEMP 36.2; O2SAT 97
== END 2022-12-12 14:55 | disposition home or self-care (01) ==
PROVIDERS: Emergency Provider Nurse Practitioner; PCP Family Medicine
DX: S00.86XA Insect bite (nonvenomous) of other part of head, initial encounter (principal); W57.XXXA Bitten or stung by nonvenomous insect and other nonvenomous arthropods, initial encounter; R09.82 Postnasal drip; Z87.891 Personal history of nicotine dependence; L40.9 Psoriasis, unspecified; Z85.820 Personal history of malignant melanoma of skin
CPT/HCPCS: 87880; 99213; G0463

== ENCOUNTER → 2022-12-23 13:48 | Outpatient (CLI) | payer OTHER, SELFPAY ==
--- NOTE | ~2022-12-23 | XR_ITS ---
EXAMINATION: XR sacroiliac joints min 3V INDICATION: Right-sided sciatica TECHNIQUE: Three views of the sacroiliac joints are obtained. COMPARISON: None available FINDINGS: Bone alignment is normal. There is no fracture. No abnormal erosion or sclerosis identified . IMPRESSION: 1. No acute osseous abnormality. Reviewed, dictated and finalized at location B.
== END ==
PROVIDERS: PCP Family Medicine; Visit Provider Nurse Practitioner Family
DX: M54.31 Sciatica, right side (principal)
CPT/HCPCS: 72202

== ENCOUNTER 2023-08-27 16:01 | Emergency (ER) | payer OTHER, SELFPAY ==
[2023-08-27 16:08] VITALS: BP 129/76; PULSE 68; RESP 18; TEMP 36.7; O2SAT 100
--- NOTE | 2023-08-27 16:12 | ED.GENADULT ---
HPI - General Adult General Chief complaint: Skin/Abscess/Foreign Body Stated complaint: Skin Irritation Time Seen by Provider: 08/27/23 16:12 Source: patient, RN notes reviewed and old records reviewed Mode of arrival: ambulatory Limitations: no limitations History of Present Illness HPI narrative: 58 year old female who presents to [facility] care with complaints of returning from [place] about 2 weeks ago and now having what she thinks is a flare of her psoriasis. Patient has red scaly patches noted on her back, arms which are itchy. She also reports that she has been having some left sided sore throat for the past few days and would like strep screen done. Patient denies any fevers,chills or sweats denies any acute cough. MD complaint: flare of psoriasis, sore throat Onset (ago): day(s) (4-5) Severity scale (1-10): 4 Treatments prior to arrival: none Related Data Allergies Allergy/AdvReac Type Severity Reaction Status Date / Time codeine AdvReac Intermediate SLURRED Verified 08/27/23 16:17 SPEECH HORSE RADISH AdvReac Intermediate HIVES AND Uncoded 12/23/22 13:10 ABDOMINAL PAIN Review of Systems Review of Systems: CONSTITUTIONAL: Denies fever, chills, or sweats. CARDIOVASCULAR: Denies chest pain, palpitations, or edema. RESPIRATORY: Denies cough or dyspnea. reports left sided sore throat SKIN: Reports red scaly patches of rash to forearms, legs, and on back which are itchy MUSCULOSKELETAL: Denies joint pain or myalgia. NEUROLOGIC: Denies headache, numbness, or weakness. All systems reviewed & are unremarkable except as noted in HPI and below [facility] Past Medical History Medical History Anxiety Bronchitis Colon cancer screening Diverticulosis Fibroadenoma of breast Right History of melanoma (~2019) History of miscarriage Kidney stones Menopausal symptoms Psoriasis Right thigh pain Vaginal delivery x 2 Vitamin D deficiency Surgical History Surgical History H/O tubal ligation (~2002) History of melanoma excision (~09/2019) 09/2019 [place] teeth removed (~1982) Family History Family History Grandparent Diabetes mellitus Father Alive and well Mother Alive and well Other Breast cancer Social History Social History Years smoked: 40 Smoking status: Former smoker Tobacco type: cigarettes Smoking end date: 01/18/21 Additional smoking assessment comments: smoked on and off for 40 years Alcohol intake: current Drinks per week: 12 Substance use: current Substance use type: marijuana Last use: 08/27/21 Lack of Transportation: No Lack of Food: Never True Current Housing: I Have Housing Concerned About Future Housing: No Difficulty Paying Gas/Electric Bills: No Difficulty Paying for Meds: No Currently Unemployed: No Education: Associate Degree Difficulty w/ Childcare or Family Care: No Living arrangements: with family Occupation/Education: occupation Gender identity (if verbalized by the patient): Female Sexual Orientation (if Verbalized by the Patient): Straight or Heterosexual Spiritual care concerns: No Agree to blood products: Yes Comments At time of signature, agree with nursing past medical, surgical, social and family history. There is no relevant family history pertinent to the presenting complaint Exam Narrative: GENERAL: Well-appearing, well-nourished, and in no acute distress. HEAD: Normocephalic, atraumatic. EYES: PERRLA, conjunctivae clear, and EOMI. ENT: Mucous membranes moist. Oropharynx without edema, some redness noted, no lesions reports pain to left side of throat NECK: Supple. No lymphadenopathy CHEST: Clear to auscultation. No respiratory distress.SAO2 HEART: Regular rate and rhy
== END 2023-08-27 16:47 | disposition home or self-care (01) ==
PROVIDERS: Emergency Provider Registered Nurse; PCP Family Medicine
DX: J02.0 Streptococcal pharyngitis (principal); L40.9 Psoriasis, unspecified; Z85.820 Personal history of malignant melanoma of skin; E55.9 Vitamin D deficiency, unspecified; F41.9 Anxiety disorder, unspecified; Z87.891 Personal history of nicotine dependence
CPT/HCPCS: 87081; 87147; 87880; 99213; G0463

== ENCOUNTER 2023-09-04 08:24 | Emergency (ER) | payer OTHER, SELFPAY ==
[2023-09-04 08:34] VITALS: BP 122/83; PULSE 106; RESP 16; TEMP 36.6; O2SAT 97
--- NOTE | 2023-09-04 08:36 | ED.SKABFB ---
HPI - Skin/Abscess/Foreign Bdy General Chief complaint: Skin/Abscess/Foreign Body Stated complaint: Rash Time Seen by Provider: 09/04/23 08:36 Source: patient, RN notes reviewed and old records reviewed Mode of arrival: ambulatory Limitations: no limitations History of Present Illness HPI narrative: 58-year-old female who presents psoriasis flare generalized to body. Patient was recently treated with Medrol dose pack and was found to have strep throat which was found on culture with initial screen negative. Patient reports that she is still on the antibiotic for the strep with throat pain resolved. 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 Patient reports that she has been using dial soap got rid of her other body wash. MD complaint: rash Onset (ago): day(s) (3-4 days) Location: generalized Severity: moderate Treatments prior to arrival: other (using prescribed ointment, on Antibiotics, recently took Medrol dose pack) Related Data Allergies Allergy/AdvReac Type Severity Reaction Status Date / Time codeine AdvReac Intermediate SLURRED Verified 09/04/23 08:32 SPEECH HORSE RADISH AdvReac Intermediate HIVES AND Uncoded 09/04/23 08:32 ABDOMINAL PAIN Review of Systems Review of Systems: CONSTITUTIONAL: Denies fever, chills, or sweats. CARDIOVASCULAR: Denies chest pain, palpitations, or edema. RESPIRATORY: Denies cough or dyspnea. SKIN: Reports red raised rash with some scaly areas, history of psoriasis MUSCULOSKELETAL: Denies joint pain or myalgia. NEUROLOGIC: Denies headache, numbness, or weakness. All systems reviewed & are unremarkable except as noted in HPI and below PMFSH Past Medical History Medical History Anxiety Bronchitis Colon cancer screening Diverticulosis Fibroadenoma of breast Right History of melanoma (~2019) History of miscarriage Kidney stones Menopausal symptoms Psoriasis Right thigh pain Vaginal delivery x 2 Vitamin D deficiency Surgical History Surgical History H/O tubal ligation (~2002) History of melanoma excision (~09/2019) 09/2019 [place] teeth removed (~1982) Family History Family History Grandparent Diabetes mellitus Father Alive and well Mother Alive and well Other Breast cancer Social History Social History Years smoked: 40 Smoking status: Former smoker Tobacco type: cigarettes Smoking end date: 01/18/21 Additional smoking assessment comments: smoked on and off for 40 years Alcohol intake: current Drinks per week: 12 Substance use: current Substance use type: marijuana Last use: 08/27/21 Lack of Transportation: No Lack of Food: Never True Current Housing: I Have Housing Concerned About Future Housing: No Difficulty Paying Gas/Electric Bills: No Difficulty Paying for Meds: No Currently Unemployed: No Education: Associate Degree Difficulty w/ Childcare or Family Care: No Living arrangements: with family Occupation/Education: occupation Gender identity (if verbalized by the patient): Female Sexual Orientation (if Verbalized by the Patient): Straight or Heterosexual Spiritual care concerns: No Agree to blood products: Yes Comments At time of signature, agree with nursing past medical, surgical, social and family history. There is no relevant family history pertinent to the presenting complaint Exam Narrative: GENERAL: Well-appearing, well-nourished, and in no acute distress. HEAD: Normocephalic, atraumatic. EYES: PERRLA, conjunctivae clear, and EOMI. ENT: Mucous membranes moist. Oropharynx without edema, erythema or lesions. NECK: Supple. No lymphadenopathy CHEST: Clear to auscultation. No respiratory distress.SAO2 97% on room air HEAR
== END 2023-09-04 08:52 | disposition home or self-care (01) ==
PROVIDERS: Emergency Provider Registered Nurse; PCP Family Medicine
DX: L40.9 Psoriasis, unspecified (principal); Z87.891 Personal history of nicotine dependence; Z85.820 Personal history of malignant melanoma of skin
CPT/HCPCS: 99213; G0463

== ENCOUNTER 2023-09-16 13:54 | Emergency (ER) | payer OTHER, SELFPAY ==
[2023-09-16 14:01] VITALS: BP 131/78; PULSE 83; RESP 16; TEMP 36.6; O2SAT 100
--- NOTE | 2023-09-16 14:01 | ED.URI ---
HPI - URI/Sore Throat General Chief Complaint: Upper Respiratory Infection Stated Complaint: SORE THROAT / BURNING URINATION Time Seen by Provider: 09/16/23 14:14 Source: patient and RN notes reviewed Mode of arrival: ambulatory Limitations: no limitations History of Present Illness HPI Narrative: 58-year-old female presents with multiple concerns. She reports dysuria for about 2 days. She denies frequency, urgency, abdominal pain, vaginal itching, abnormal discharge, and she denies back pain, nausea, vomiting, fever, chills, body aches, sweats. She reports a few weeks ago she was treated for strep throat after a positive culture, she took the antibiotic and got better, however strep throat was passed around her family and multiple members of her family got it again, she started having a sore throat yesterday. She reports similar symptoms when she has strep 1st time. She reports originally her rapid strep was negative and her culture was positive MD elicited complaint: sore throat and other (dysuria) Related Data Allergies Allergy/AdvReac Type Severity Reaction Status Date / Time codeine AdvReac Intermediate SLURRED Verified 09/16/23 14:14 SPEECH HORSE RADISH AdvReac Intermediate HIVES AND Uncoded 09/04/23 08:32 ABDOMINAL PAIN Review of Systems Review of Systems: CONSTITUTIONAL: Denies malaise, chills, sweats, or fever. EYES: Denies visual changes, redness, or discharge. ENT: Denies rhinorrhea, congestion, sinus pain, otalgia. Reports sore throat. CARDIOVASCULAR: Denies chest pain, palpitations, or edema. RESPIRATORY: Denies cough. Denies dyspnea. GASTROINTESTINAL: Denies abdominal pain, nausea, vomiting, diarrhea : Reports burning with urination, see HPI SKIN: Denies rash or itching. MUSCULOSKELETAL: Denies myalgia. NEUROLOGIC: Denies headache. All systems reviewed & are unremarkable except as noted in HPI and below PMFSH Past Medical History Medical History Anxiety Bronchitis Colon cancer screening Diverticulosis Fibroadenoma of breast Right History of melanoma (~2019) History of miscarriage Kidney stones Menopausal symptoms Psoriasis Right thigh pain Vaginal delivery x 2 Vitamin D deficiency Surgical History Surgical History H/O tubal ligation (~2002) History of melanoma excision (~09/2019) 09/2019 [place] teeth removed (~1982) Family History Family History Grandparent Diabetes mellitus Father Alive and well Mother Alive and well Other Breast cancer Social History Social History Years smoked: 40 Smoking status: Former smoker Tobacco type: cigarettes Smoking end date: 01/18/21 Additional smoking assessment comments: smoked on and off for 40 years Alcohol intake: current Drinks per week: 12 Substance use: current Substance use type: marijuana Last use: 08/27/21 Lack of Transportation: No Lack of Food: Never True Current Housing: I Have Housing Concerned About Future Housing: No Difficulty Paying Gas/Electric Bills: No Difficulty Paying for Meds: No Currently Unemployed: No Education: Associate Degree Difficulty w/ Childcare or Family Care: No Living arrangements: with family Occupation/Education: occupation Gender identity (if verbalized by the patient): Female Sexual Orientation (if Verbalized by the Patient): Straight or Heterosexual Spiritual care concerns: No Agree to blood products: Yes Comments At time of signature, agree with nursing past medical, surgical, social and family history. There is no relevant family history pertinent to the presenting complaint Exam Narrative: GENERAL: Well-appearing, well-nourished, and in no acute distress. HEAD: Normocephalic EYES: PERRLA, conjunctivae
== END 2023-09-16 14:28 | disposition home or self-care (01) ==
PROVIDERS: Emergency Provider Nurse Practitioner; PCP Family Medicine
DX: J02.9 Acute pharyngitis, unspecified (principal); Z20.818 Contact with and (suspected) exposure to other bacterial communicable diseases; R30.0 Dysuria; Z87.891 Personal history of nicotine dependence; L40.9 Psoriasis, unspecified; Z85.820 Personal history of malignant melanoma of skin
CPT/HCPCS: 81003; 87081; 87086; 87880; 99213; G0463

== ENCOUNTER 2023-10-19 13:04 | Outpatient (CLI) | payer OTHER, SELFPAY ==
--- NOTE | ~2023-10-19 | XR_ITS ---
EXAMINATION: [id number] DATE: 10/19/2023 13:28 INDICATION: Left fourth toe pain after kicking a stroller TECHNIQUE: 1. Dorsoplantar, two oblique and lateral views of the left foot were obtained. 2. Dorsoplantar, two oblique and lateral views of the left fourth toe were obtained. COMPARISON: None. FINDINGS: Nondisplaced extra-articular fracture at the left fourth proximal phalanx with oblique linear lucency projecting across the diaphysis and several cortical interruption at the lateral margin of the proxi mal metaphyseal region. Alignment remains essentially anatomic. No other fractures identified. 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 Small Achilles turner caneal spur and moderate sized plantar calcaneal spur. Mild soft tissue swelling about the fourth toe . IMPRESSION: 1. Nondisplaced extra articular fracture of the left fourth proximal phalanx. Reviewed, dictated and finalized at location B.
--- NOTE | ~2023-10-19 | XR_ITS ---
EXAM: XR toe 4th LT min 2V DATE: 10/19/2023 13:28 HISTORY: Kicked a stroller 2 days ago, pain in 4th toe . COMPARISON: None available. FINDINGS: Decreased mineralization. Nondisplaced extra-articular oblique fracture of the left fourth proximal phalange. No lytic or blastic lesion. Joint spaces and physes are maintained. No erosion or periosteal change. Soft tissues within normal limits. IMPRESSION: Nondisplaced, extra-articular, oblique left fourth proximal phalange fracture. Reviewed, dictated and finalized at location K. IMPRESSION: Nondisplaced, extra-articular, oblique left fourth proximal phalang e fracture.
== END 2023-10-19 13:05 ==
LOC: GOSHIMG 13:06
PROVIDERS: PCP Family Medicine; Visit Provider Family Medicine
DX: S92.515A Nondisplaced fracture of proximal phalanx of left lesser toe(s), initial encounter for closed fracture (principal); X58.XXXA Exposure to other specified factors, initial encounter
CPT/HCPCS: 73630; 73660

== ENCOUNTER 2023-12-01 10:33 | Emergency (ER) | payer SELFPAY ==
--- NOTE | 2023-12-01 10:38 | ED.EAR ---
HPI - Ear Problem General Chief complaint: Skin/Abscess/Foreign Body Stated complaint: Q-tip cotton stuck in ear Time Seen by Provider: 12/01/23 10:39 Source: patient and RN notes reviewed Mode of arrival: ambulatory Limitations: no limitations History of Present Illness HPI Narrative: 58-year-old female presents with concern for a Q-tip stuck in her left ear canal. Reports on Thursday she cleaned her ears and the Q-tip came out no caught nausea. She denies pain but reports since then she has had ear canal irritation and itchiness. Complaint: foreign body Related Data Allergies Allergy/AdvReac Type Severity Reaction Status Date / Time codeine AdvReac Intermediate SLURRED Verified 12/01/23 10:37 SPEECH HORSE RADISH AdvReac Intermediate Gastrointestinal Uncoded 12/01/23 10:37 Upset Review of Systems Review of Systems: CONSTITUTIONAL: Denies malaise, chills, sweats, or fever. EYES: Denies visual changes, redness, or discharge. ENT: Denies rhinorrhea, congestion, sinus pain, and sore throat. Reports possible foreign body in the left ear canal, ear canal itchiness CARDIOVASCULAR: Denies chest pain, palpitations, or edema. RESPIRATORY: Denies cough. Denies dyspnea. GASTROINTESTINAL: Denies abdominal pain, nausea, vomiting, diarrhea SKIN: Denies rash or itching. MUSCULOSKELETAL: Denies myalgia. NEUROLOGIC: Denies headache. All systems reviewed & are unremarkable except as noted in HPI and below PMFSH Past Medical History Medical History (Updated 12/01/23 @ 10:46 by Marii Estrada NP) Anxiety Bronchitis Colon cancer screening Diverticulosis Fibroadenoma of breast Right History of melanoma (~2019) History of miscarriage Injury of foot, left Kidney stones Menopausal symptoms Phalanx fracture, foot Psoriasis Right thigh pain Vaginal delivery x 2 Vitamin D deficiency Surgical History Surgical History H/O tubal ligation (~2002) History of melanoma excision (~09/2019) 09/2019 [place] teeth removed (~1982) Family History Family History Grandparent Diabetes mellitus Father Alive and well Mother Alive and well Other Breast cancer Social History Social History Years smoked: 40 Smoking status: Former smoker Tobacco type: cigarettes Smoking end date: 01/18/21 Additional smoking assessment comments: smoked on and off for 40 years Alcohol intake: current Drinks per week: 12 Substance use: current Substance use type: marijuana Last use: 08/27/21 Lack of Transportation: No Lack of Food: Never True Current Housing: I Have Housing Concerned About Future Housing: No Difficulty Paying Gas/Electric Bills: No Difficulty Paying for Meds: No Currently Unemployed: No Education: Associate Degree Difficulty w/ Childcare or Family Care: No Living arrangements: with family Occupation/Education: occupation Gender identity (if verbalized by the patient): Female Sexual Orientation (if Verbalized by the Patient): Straight or Heterosexual Spiritual care concerns: No Agree to blood products: Yes Comments At time of signature, agree with nursing past medical, surgical, social and family history. There is no relevant family history pertinent to the presenting complaint Exam Narrative: GENERAL: Well-appearing, well-nourished, and in no acute distress. HEAD: Normocephalic EYES: PERRLA, conjunctivae clear ENT: Nares clear, turbinates edematous, clear discharge. Mucous membranes moist. TM pearly rojas with sharp light reflex bilaterally; no tragal tenderness. No foreign body noted in the left ear canal or the right ear canal. NECK: Supple. No lymphadenopathy CHEST: No respiratory distress, speaks in full sentences. HEART: Regular rate and rhythm. SKIN: Warm, dry, no rash. NEURO: Alert and oriented
[2023-12-01 10:41] VITALS: BP 142/85; PULSE 87; RESP 16; TEMP 37; O2SAT 100
== END 2023-12-01 10:48 | disposition home or self-care (01) ==
PROVIDERS: Emergency Provider Nurse Practitioner; PCP Family Medicine
DX: H60.92 Unspecified otitis externa, left ear (principal); Z87.891 Personal history of nicotine dependence; L40.9 Psoriasis, unspecified; Z85.820 Personal history of malignant melanoma of skin
CPT/HCPCS: 99213; G0463

== ENCOUNTER 2024-12-10 08:07 | Emergency (ER) | payer OTHER, SELFPAY ==
--- NOTE | 2024-12-10 08:09 | ED.SKABFB ---
HPI - Skin/Abscess/Foreign Bdy General Chief complaint: Skin/Abscess/Foreign Body Stated complaint: Skin Time Seen by Provider: 12/10/24 08:08 Source: patient Mode of arrival: ambulatory Limitations: no limitations History of Present Illness HPI narrative: Chey is a 59-year-old female patient presenting to the clinic today of with complaints of psoriasis flare, productive cough yellow mucus, mild shortness of breath, itching ears, and chest congestion. She reports chest congestion and productive cough is been going on for least 3 weeks. She is a former smoker. Denies any chest pain. States she has a psoriasis flare all over her body. Has been prescribed clobetasol cream and she has been using this but is reporting out of her cream. 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 She does not take any immunologic drugs for her psoriasis. Related Data Allergies Allergy/AdvReac Type Severity Reaction Status Date / Time codeine AdvReac Intermediate SLURRED Verified 12/10/24 08:09 SPEECH HORSE RADISH AdvReac Intermediate Gastrointestinal Uncoded 12/10/24 08:09 Upset Review of Systems Review of Systems: Pertinent positives per HPI. Patient denies any fever, chills, headache, visual changes, dizziness, cough, runny nose, sore throat, shortness of breath, chest pain, palpitations, nausea, vomiting, diarrhea, constipation, abdominal pain, or any urinary issues. [facility] Past Medical History Medical History Colon cancer screening Phalanx fracture, foot Injury of foot, left Right thigh pain Vitamin D deficiency History of melanoma (~2019) History of miscarriage Fibroadenoma of breast Right Menopausal symptoms Vaginal delivery x 2 Diverticulosis Kidney stones Psoriasis Anxiety Bronchitis Surgical History Surgical History History of melanoma excision (~09/2019) 09/2019 [place] teeth removed (~1982) H/O tubal ligation (~2002) Family History Family History Grandparent Diabetes mellitus Father Alive and well Mother Alive and well Other Breast cancer Social History Social History Years smoked: 40 Smoking status: Former smoker Tobacco type: cigarettes Smoking end date: 01/18/21 Additional smoking assessment comments: smoked on and off for 40 years Alcohol intake: current Drinks per week: 12 Substance use: current Substance use type: marijuana Last use: 08/27/21 Lack of Transportation: No Lack of Food: Never True Current Housing: I Have Housing Concerned About Future Housing: No Difficulty Paying Gas/Electric Bills: No Difficulty Paying for Meds: No Currently Unemployed: No Education: Associate Degree Difficulty w/ Childcare or Family Care: No Living arrangements: with family Occupation/Education: occupation Gender identity (if verbalized by the patient): Female Sexual Orientation (if Verbalized by the Patient): Straight or Heterosexual Spiritual care concerns: No Agree to blood products: Yes Comments At the time of my signature, I reviewed and agree with the nursing past medical, surgical, social, and family history. There is no relevant family history pertinent to the patient complaint. Exam Narrative: General: Well-developed, well nourished, in no apparent distress Head: Normocephalic, atraumatic Eyes: Pupils equally round and reactive to light bilaterally, EOM intact, sclera and conjunctive clear, no discharge, lids normal Ears: TMs intact and congested, ear canals swollen with psoriasis plaque, no drainage, grossly hearing normal. Nose: Nares patent, no discharge, no inflammation, no sinus tenderness. Mouth: Oropharynx without lesions or masses, good dentition, MMM. Neck: Supple, trachea midline, no enlargement of anterior or posterior cervical nodes, no thyroid masses or goiter palpable. Cardio: Regular rate and rhythm, s1 and s2 normal, no murmur appreciated. Resp: Expiratory wheezing on the right posterior middle and upper lobes, no rhonchi, rales, or rubs Integumentary: Manter, warm, and dry, mildly red, raised, scaly, itchy plaque-like lesion all over body Course Course Emergency Course: Portions of this record may have been created with voice recognition software. Level of Care: Express Care Visit Vital Signs Vital signs: Vital Signs Temperature 36.7 C 12/10/24 08:14 Pulse Rate 96 12/10/24 08:14 Respiratory Rate 18 12/10/24 08:14 Blood Pressure 137/71 12/10/24 08:14 Pulse Oximetry 100 12/10/24 08:14 Oxygen Delivery Room Air 12/10/24 08:14 Temperature 36.7 C 12/10/24 08:14 Pulse Rate 96 12/10/24 08:14 Respiratory Rate 18 12/10/24 08:14 Blood Pressure 137/71 12/10/24 08:14 Pulse Oximetry 100 12/10/24 08:14 Oxygen Delivery Room Air 12/10/24 08:14 Vital signs reviewed MDM - Skin/Abscess/Foreign Bdy MDM Narrative Medical decision making narrative: At the time of visit patient is resting comfortably on the exam table. Patient appears to be nontoxic. Complaints of psoriasis flare, productive yellow cough mucus, mild shortness of breath, itching ears, and chest congestion. She reports chest congestion and productive cough is been going on for least 3 weeks. She is a former smoker. Denies any chest pain. States she has a psoriasis flare all over her body. Has been prescribed clobetasol cream and she has been using this but is reporting out of her cream. 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 She does not take any immunologic drugs for her psoriasis. On exam patient has red, raised, plaque-like itchy rash to entire body, lung sounds wheezing with a congested wet cough, and ear canal swelling with psoriasis inside her ears. Vital signs stable. Plan: I suspect patient has a psoriasis flare, bronchitis, and of itchy ears with psoriasis in her ears. Prescriptions for prednisone, azithromycin, Cortisporin, and clobetasol cream was sent to the pharmacy. Supportive measures were discussed with the patient and they voiced understanding discharge instructions and agrees to treatment plan. Return precautions reviewed Differential Diagnosis Differential diagnosis: Likely abscess of skin or subcutaneous tissue, viral exanthem, dermatophytosis, urticaria, herpes zoster, allergic reaction to drug, cellulitis, eczema, insect bites, impetigo and contact dermatitis Discharge Plan Discharge Clinical Impression: Psoriasis, Bronchitis Patient Disposition: Home Condition: Stable Instructions: Antibiotic Form, Psoriasis (ED), Acute Bronchitis (ED) Additional Instructions: Apply clobetasol cream as directed Take prednisone as directed Continue albuterol inhaler as directed Instill Cortisporin ear drops as directed. Avoid hot showers May moisturize skin twice daily using Cetaphil, Lubriderm, are Aquaphor lotion Avoid scratching as this can cause a secondary infection May take benadryl 25-50mg every 6 hours as needed for itching. Follow up with your PCP in 3-5 days if symptoms persist or sooner if they worsen Go to the Emergency Room if symptoms worsen- fever, rash spreading with treatment, shortness of breath, tongue swelling, drooling, or chest pain Patient Language: Malian Prescriptions: New clobetasol 0.05 % ointment 1 applic topical BID 14 Days Qty: 60 0RF [id number]-HQ 3.5-10,000-1 mg/mL-unit/mL-% drops,suspension 4 drp EACH EAR Q8H 7 Days Qty: 10 0RF azithromycin 250 mg tablet See Rx Instructions .ROUTE .COMPLEX Qty: 6 0RF Rx Instructions: For 250 mg dose pack: take 500 mg today (day 1), then 250 mg for 4 days (days 2-5) prednisone 10 mg tablet 10 mg PO DAILY Qty: 30 0RF Rx Instructions: 60mg po daily on day 1, 40mg po daily on days 2-4, 30mg po daily on days 5-6, 20mg po daily on days 7-8, 10mg po daily on days 9-10 Follow-up/Referrals: UNKNOWN,DOCTOR [Non-Staff] Time of Disposition: 08:24 Quality NIHSS Nursing Documentation ED NIHSS nursing documentation: reviewed/agree
--- OUTSIDE RECORDS SUMMARY | 2024-12-10 08:10 | XMS_ITS | Clinical Summary ---
Author Organization [facility] Address [address] [place] [id number] Care Team Providers Care Hr Administrative Assistant Name Role Phone Roddy Austin DO Primary Care Provider [phone] Allergies Active Allergy Reactions Criticality Noted Date Comments Horseradish Hives 05/25/2019 Medications albuterol sulfate 90 mcg/actuation metered powder inhalerIndication s:Wheezing Take 2 Puffs by inhalation every 6 hours as needed for Shortness of Breath. 1 Inhaler 0 Active betamethasone dipropionate (DIPROSONE) 0.05 % Ointment Apply to affected area 2 times daily. 45 Gram 1 0 Active Active Problems Problem Noted Date Diagnosed Date Breast mass, left 08/21/2020 Breast mass, right 08/21/2020 Herpes zoster without complication 06/09/2019 Cat bite 06/09/2019 Kidney stones 05/25/2019 Psoriasis 05/25/2019 Wheezing 05/25/2019 Flank pain 05/25/2019 Immunizations Immunization Administration Dates Next Due Influenza Seasonal Unspecified Formulation IM Family History Medical History Relation Name Comments No Known Problems Daughter No Known Problems Father No Known Problems Maternal Grandfather No Known Problems Maternal Grandmother Skin Cancer Mother Skin Cancer Paternal Grandfather No Known Problems Paternal Grandmother No Known Problems Sister No Known Problems Son Relation Name Status Comments Daughter Alive Father Alive Maternal Grandfather Maternal Grandmother Mother Alive Paternal Grandfather Paternal Grandmother Sister Alive Son Alive Social History Tobacco Use Types Packs/Day Years Used Date Smoking Tobacco: Some Days Cigarettes Last attempted to quit: 2019 Smokeless Tobacco: Never Tobacco Cessation:Ready to Q uit: Yes; Counseling Given: Yes Alcohol Use Standard Drinks/Week Comments Yes 0 (1 standard drink = 0.6 oz pur e alcohol) moderate Comments No Sex and Gender Information Value Date Recorded Sex Assigned at Not on file 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 Gender Identity Not on file Sexual Orientation Not on file 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 on file Not on file Not on file Last Filed Vital Signs Vital Sign Reading Time Taken Comments Blood Pressure 140/82 08/21/2020 11:26 AM CDT Pulse 72 06/28/2019 9:09 AM CDT Temperature 36.8 C (98.3 F) 06/28/2019 9:09 AM CDT Respiratory Rate 18 06/28/2019 9:09 AM CDT Oxygen Saturation 99% 06/28/2019 9:09 AM CDT Inhaled Oxygen Concentration - - Weight 60.8 kg (134 lb) 08/21/2020 11:26 AM CDT Height 165.1 cm (5' 5) 08/21/2020 11:26 AM CDT Body Mass Index 22.3 08/21/2020 11:26 AM CDT Plan of Treatment Health Maintenance Due Date Last Done Comments DTAP/TDAP/TD VACCINES (1 - Tdap) 1984 HEPATITIS B VACCINES (1 of 3 - 19+ 3-dose series) 02/19 HPV/Cotest (21-29) 1986 HPV/Cotest (30-65) 1995 COLORECTAL SCREENING 2010 Colorectal Cancer Screening 2010 FIT-DNA Q 3 years 2010 FIT/FOBT Q 1 year 2010 Flex Sig/CT Colonography Q 5 years 2010 ZOSTER VACCINE (1 of 2) 2015 BREAST CANCER SCREENING 03/28/2021 03/28/2020 CERVICAL CANCER SCREENING 06/09/2022 PAP SMEAR 06/09/2022 06/09/2019 Preventative Visit- Commercial 04/20/2024 05/25/2019 INFLUENZA VACCINE (#1) 2024 02/17/2019 Procedures Procedure Name Priority Date/Time Associated Diagnosis Comments MAMMO SCREENING BILAT Routine 03/28/2020 from Last 3 Months or Most Recently Relevant to Health Maintenance Results * MAMMO SCREENING BILAT (03/28/2020) Anatomical Region Laterality Modality Breast Bilateral Mammography us Abstract Provider MAMMO ORDERABLES Final Result from Last 3 Months or Most Recently Relevant to Health Maintenance Insurance [employer] CHOICE POS II Care Teams Hr Administrative Assistant Relationship Specialty Start Date End Date Roddy Austin DO PCP - General Family Practice 05/24/19
--- OUTSIDE RECORDS SUMMARY | 2024-12-10 08:10 | XMS_ITS | Clinical Summary ---
Author Organization [facility] Address [address] [place] [id number] Care Team Providers Care Cellar Supervisor Name Role Phone Non-Staff, Provider Primary Care Provider Yesi lable Allergies Active Allergy Reactions Criticality Noted Date Comments Armoracia Rusticana Ext (Horseradish) Hives 05/25/2019 Medications No known medications Encounters Date Type Department Care Team Description 10/26/2024 8:10 AM CDT - 10/26/2024 8:48 AM CDT Hospital Encounter [facility] [address] [place] [id number] Leighann Waite DO Sore Throat Discharge Disposition: Home or Self Care (Routine Discharge) 10/26/2024 Travel from Last 3 Months Social History Tobacco Use Types Packs/Day Years Used Date Smoking Tobacco: Former Cigarettes Smokeless Tobacco: Never Tobacco Cessation:Counseling Given: Not Answered Alcohol Use Standard Drinks/Week Comments Yes 40 (1 standard drink = 0.6 oz pu re alcohol) Comments No Sex and Gender Information Value Date Recorded Sex Assigned at Female 10/26/2024 8:03 AM CDT Legal Sex Female 7:45 PM CDT Gender Identity Not on file Sexual Orientation Not on file Last Filed Vital Signs Vital Sign Reading Time Taken Comments Blood Pressure 138/81 10/26/2024 8:16 AM CDT Pulse 72 10/26/2024 8:16 AM CDT Temperature 36.8 C (98.3 F) 10/26/2024 8:16 AM CDT Respiratory Rate 16 10/26/2024 8:16 AM CDT Oxygen Saturation 100% 10/26/2024 8:16 AM CDT Inhaled Oxygen Concentration - - Weight 59 kg (130 lb) 10/26/2024 8:16 AM CDT Height 165.1 cm (5' 5) 10/26/2024 8:16 AM CDT Body Mass Index 21.63 10/26/2024 8:16 AM CDT Plan of Treatment Health Maintenance Due Date Last Done Comments Cervical Cancer Screening Pap Smear (Age 30 to 64) Every 3 Years 1965 Colorectal Cancer Screening Colonoscopy (10 Years) 1965 Annual Physical 1968 Hepatitis C 1983 Cervical Cancer Screening Pap with HPV Testing (Age 30 to 64) Every 5 Years 1995 Cervical Cancer Screening with HPV 1995 Mammogram Screening 2005 Pneumococcal Vaccine: 50+ Years (1 of 1 - PCV) 2015 COVID-19 Vaccine ( - season) 2023 01/28/2022, 08/22/2021, 03/06/2021, Additional history exists DTaP, Tdap and Td Vaccines (2 - Td or Tdap) 10/04/2032 10/04/2022 Zoster Vaccines Completed 04/12/2020, 01/24/2020 Meningococcal B Vaccine Aged Out No l onger eligible based on patient's age to complete this topic Meningococcal Vaccine Aged Out No ophelia gaby eligible based on patient's age to complete this topic RSV Immunizations Under 20 Months Aged Out No longer eligible based on patient's age to complete this topic Procedures Procedure Name Priority Date/Time Associated Diagnosis Comments STREP A RAPID STAT 10/26/2024 8:19 AM CDT STREP A, DNA STAT 10/26/2024 8:12 AM CDT from Last 3 Months Results * STREP A RAPID (10/26/2024 8:19 AM CDT) SPECIMEN TYPE THROAT 10/26/2024 8:19 AM CDT [facility] RAPID STREP TEST NEGATIVE NEGATIVE 10/26/2024 8:29 AM CDT [facility] STRUCTURE OF ANTERIOR PORTION OF NECK / Unknown 10/26/2024 8:19 AM CDT us Leighann Waite DO MICROBIOLOGY - GENERAL ORDERA BLES Final Result Performing Organization Address City/[facility]/ZIP Co de Phone Number [facility] [address] [place] [address], [place] * STREP A, DNA (CONFIRMATION ONLY) (10/26/2024 8:12 AM CDT) SPECIMEN SOURCE THROAT 8:47 AM CDT [facility] STREP A MOLECULAR NEGATIVE NEGATIVE 025 5:05 PM CDT [facility] Comment:SPECIMEN NEGATIVE FO R GROUP A STREPTOCOCCUS BY DNA AMPLIFICATION STRUCTURE OF ANTERIOR PORTION OF NECK / Unknown 10/26/2024 8:12 AM CDT Leighann Waite DO MICROBIOLOGY - GENERAL ORDERA BLES Final Result Performing Organization Address [facility] Co de Phone Number [facility] [address] [place] [address], [place] [phone] [facility] [place] [address], from Last 3 Months Insurance [employer] Care Teams Cellar Supervisor Relationship Specialty Start Date End Date Non-Staff, Provider PCP - General UNKNOWN PHYSICIAN SPECIALTY 10/26/24
--- OUTSIDE RECORDS SUMMARY | 2024-12-10 08:10 | XMS_ITS | Clinical Summary ---
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 Gender Identity Not on file Sexual Orientation Not on file Plan of Treatment Health Maintenance Due Date Last Done Comments Hepatitis C Virus (HCV) Screening 1965 TdaP Immunization 1965 Hepatitis B Immunization (1 of 3 - 19+ 3-dose series) 1984 Pap Smear 1986 Cervical Cancer Screening (CCS) 1995 HPV/Cotest 1995 Cologuard 2010 Colonoscopy 2010 Colorectal Cancer Screening 2010 Immunochemical Fecal Occult Blood 2010 Pneumococcal Immunization (50+ years) (1 of 1 - PCV) 2015 SARS-COV-2 Immunization ( season) 2023 03/06/2021, 07/16/2020, 06/25/2020 Influenza Immunization (#1) 12/19/202412/20, 01/24/2020, 01/08/2019, Additional history exists Respiratory Syncytial Virus (RSV) Immunization (Adult) (1 - 1-dose 75+ series) 2040 Zoster Immunization Completed 04/12/2020, 0 Human Papillomavirus (HPV) Immunization Aged Out No longer eligible based on patient's age to complete this topic Meningococcal Immunization (ACWY) Aged Out No longer eligible based on patient's age to complete this topic Rotavirus Immunization Aged Out No lo nger eligible based on patient's age to complete this topic
[2024-12-10 08:14] VITALS: BP 137/71; PULSE 96; RESP 18; TEMP 36.7; O2SAT 100
== END 2024-12-10 08:31 | disposition home or self-care (01) ==
PROVIDERS: Emergency Provider Nurse Practitioner Family
DX: L40.9 Psoriasis, unspecified (principal); J40 Bronchitis, not specified as acute or chronic; Z87.891 Personal history of nicotine dependence
CPT/HCPCS: 99213; G0463